=== PATIENT | male | born 1950 | race Caucasian/White ===

== ENCOUNTER 2025-04-29 07:07 | Emergency (ER) | payer OTHER, SELFPAY ==
[2025-04-29 07:09] VITALS: BP 166/112
--- NOTE | 2025-04-29 07:41 | ED.GENMED ---
History of Present Illness
General
Chief Complaint: DVT/Possible Blood Clot
Source: patient
Exam Limitations: none
Time Seen by Provider: 04/29/25 07:14
History of Present Illness
History of Present Illness:
74-year-old male had back surgery 6 days ago. Multiple IV sticks. Initially to the left dorsal hand and then the right arm. Patient is concerned because overnight he felt there is some change in color to the dorsal left hand along with some pain
and nervelike pain between his fingers. No fever or chills. No other complaints
Review of Systems
Review of Systems
All Other Systems: Not applicable
Constitutional: Denies fever
Phy Exam
Physical Exam
Physical Exam:
GENERAL: Alert and oriented in no apparent distress
CARDIAC: Regular rate and rhythm
LUNGS: No respiratory distress
NEUROLOGICAL: Alert and oriented , grossly non-focal. Walking ambulating without difficulty. Good strength of the left hand.
SKIN: Warm and dry, ecchymosis to the dorsal left hand. Diffusely across the dorsum. However no swelling. No obvious puncture wound. No obvious warmth erythema or fluctuance. Ecchymosis under the bandage site to the lower back also typical
postoperative ecchymosis.
MUSCULOSKELETAL: No edema, ecchymosis to left dorsal hand without swelling or erythema. Recruiting Coordinator normal. Able to flex and extend the digits without issues. Good capillary refill.
PSYCH: Normal and appropriate interaction.
Course
Orders/Labs/Results
Orders:
Orders
04/29/25 07:23
US Periph Venous UPPER Ext LT Urgent
Comment:
Reason For Exam: Left arm pain.
Vital Signs
Initial and Last Documented VS:
Initial Vital Signs
Temp Pulse Resp BP Pulse Ox
98.4 F 116 18 166/112 98
04/29/25 07:09 04/29/25 07:09 04/29/25 07:09 04/29/25 07:09 04/29/25 07:09
Last Documented Vital Signs
Temp Pulse Resp BP Pulse Ox
98.4 F 84 20 139/85 99
04/29/25 07:09 04/29/25 09:30 04/29/25 09:30 04/29/25 09:30 04/29/25 09:30
MDM/Problems Addressed
Differential Diagnosis Includes:
Clinically this appears to be all local ecchymosis with some possible nerve irritation. Very low suspicion for infection. Very very low issue or concern for DVT. However for completeness and reassurance we will get an ultrasound. X-ray would be
unhelpful. Labs would be unhelpful. No acute neurovascular issue. Likely reassurance warm compresses and follow-up. I clinically highly doubt infection but will give a prescription for doxycycline if this area of the dorsal hand starts looking
erythematous
*Radiology
Radiology exam reviewed: radiology read reviewed (Superficial thrombophlebitis)
*Pulse Oximetry
SaO2: 98
Oxygen Mode of Delivery: Room air
Patient hypoxic: no
*Critical Care Note
Total Time (30-74mins, 75-104mins- exclusive of procedures): Not Applicable
Update Note
Update Note:
Patient and asked me to recheck his low back. Healing well. No drainage erythema fluctuance. Cheerier border area of ecchymosis as expected. Will avoid nonsteroidals. Doxycycline only if symptoms progress.
ED Attending Note
-
Portions of this chart may have been created with voice recognition software.� Occasional wrong word or��sound alike� substitutions may have occurred due to the inherent limitations of voice recognition software.
Discharge Plan
Departure
Patient Disposition: Home (Routine Discharge)
Date of Disposition: 04/29/25
Time of Disposition: 09:54
Patient with high blood pressure during this ER visit?: Yes
Discharge Problem:
Superficial thrombophlebitis left hand, Secondary to IV attempt, Healing postsurgical wound lower back
Instructions: Superficial vein phlebitis and thrombosis, BLOOD PRESSURE
Prescriptions:
New
doxycycline hyclate 100 mg capsule
100 mg PO BID 10 Days Qty: 20 0RF
Referrals:
Roel Pascal DO [Family Provider, Family Practice] - Follow up in 2-3 days
Activity Restrictions/Additional Instructions:
Only start the antibiotics for the indication as we discussed
Warm compresses to the left hand. No Advil Motrin or Aleve at this time even though it may list this in the instructions
Follow-up for your pain physicians
Interventions
Interventions:
*Risk Screen - Suicide Last Done: 04/29/25 07:09
*General Assessment Last Done: 04/29/25 07:09
*Neglect/Abuse Screening Last Done: 04/29/25 07:09
Discharge Date and Time
Print Language: [id number]
[2025-04-29 09:30] VITALS: BP 139/85
== END 2025-04-29 11:10 | disposition home or self-care (01) ==
LOC: EMR 07:07
PROVIDERS: EMERGENCY PHYSICIAN Emergency Medicine; FAMILY PHYSICIAN Family Medicine
DX: T80.1XXA Vascular complications following infusion, transfusion and therapeutic injection, initial encounter (principal); I80.8 Phlebitis and thrombophlebitis of other sites
CPT/HCPCS: 99284; 93971